=== PATIENT | female | born 1980 | race Caucasian/White ===

== ENCOUNTER 2017-01-01 14:11 | Emergency (ER) | payer SELFPAY ==
[~2017-01-01] VITALS: Ht 152.4 cm; Wt 67.7 kg
[2017-01-01 14:21] VITALS: BP 110/61
== END 2017-01-01 15:26 | disposition home or self-care (01) ==
LOC: ED 15:10
DX: J20.9 Acute bronchitis, unspecified (principal); J45.31 Mild persistent asthma with (acute) exacerbation; F10.20 Alcohol dependence, uncomplicated
CPT/HCPCS: 71020; 99284; J7512

== ENCOUNTER 2017-02-07 14:33 | Emergency (ER) | payer SELFPAY ==
[~2017-02-07] VITALS: Ht 152.4 cm; Wt 68.0 kg
[2017-02-07 14:45] VITALS: BP 118/81
[2017-02-07 15:59] LABS: ASPARTATE AMINO TRANSFERASE 80 U/L (15-37); BLOOD UREA NITROGEN 7 mg/dL (7-18)
== END 2017-02-07 17:01 | disposition home or self-care (01) ==
LOC: ED 15:37
DX: N89.8 Other specified noninflammatory disorders of vagina (principal); F17.210 Nicotine dependence, cigarettes, uncomplicated; F19.10 Other psychoactive substance abuse, uncomplicated; J45.909 Unspecified asthma, uncomplicated
CPT/HCPCS: 36415; 80053; 81001; 84703; 85025; 87086; 93005; 99285

== ENCOUNTER 2017-06-22 17:23 | Emergency (ER) | payer SELFPAY ==
[~2017-06-22] VITALS: Ht 152.4 cm; Wt 57.3 kg
[2017-06-22 17:33] VITALS: BP 120/90
== END 2017-06-22 18:25 ==
LOC: ED 18:19
DX: Z53.21 Procedure and treatment not carried out due to patient leaving prior to being seen by health care provider (principal)

== ENCOUNTER 2017-06-29 12:56 | Emergency (ER) | payer OTHER ==
[~2017-06-29] VITALS: Ht 152.4 cm; Wt 57.0 kg
[2017-06-29] MEDS ORDERED: SODIUM CHLORIDE 0.9% 1,000ML IVBOLUS ONE (13:30)
[2017-06-29] MEDS ORDERED: SODIUM CHLORIDE FLUSH 10ML SYR IVF ONE (13:30)
[2017-06-29] MEDS ORDERED: ONDANSETRON 2MG/ML, 2ML IVPush ONE (13:30)
[2017-06-29] MEDS ORDERED: ONDANSETRON 2MG/ML, 2ML ONE (13:32)
[2017-06-29] MEDS ORDERED: ONDANSETRON ODT 4 MG ONE (14:25)
[2017-06-29] MEDS ORDERED: ONDANSETRON ODT 4 MG PO ONE (14:30)
[2017-06-29 14:51] LABS: HEMATOCRIT 47.4 % (34.6-47.8); HEMOGLOBIN 16.2 g/dL (11.7-16.4); WHITE BLOOD COUNT 5.8 x10^3/uL (3.4-10)
[2017-06-29 14:59] LABS: ASPARTATE AMINO TRANSFERASE 65 U/L (15-37); BLOOD UREA NITROGEN 5 mg/dL (7-18)
[2017-06-29 15:46] VITALS: BP 126/84
== END 2017-06-29 16:05 | disposition home or self-care (01) ==
LOC: ED 16:00
DX: F10.220 Alcohol dependence with intoxication, uncomplicated (principal)
CPT/HCPCS: 36415; 74020; 80053; 80307; 83690; 85025; 93005; 99285; Q0162; G0479

== ENCOUNTER 2017-08-08 12:40 | Emergency (ER) | payer MEDICAID, OTHER ==
[~2017-08-08] VITALS: Ht 152.4 cm; Wt 57.2 kg
[2017-08-08 12:54] VITALS: BP 113/74
== END 2017-08-08 15:33 | disposition home or self-care (01) ==
LOC: ED 15:27
DX: M54.2 Cervicalgia (principal); M54.5 Low back pain; F10.229 Alcohol dependence with intoxication, unspecified; J45.909 Unspecified asthma, uncomplicated; Y04.0XXA Assault by unarmed brawl or fight, initial encounter; Y93.89 Activity, other specified; Y92.89 Other specified places as the place of occurrence of the external cause; Y99.8 Other external cause status
CPT/HCPCS: 72020; 72050; 72110; 99284

== ENCOUNTER 2017-08-22 08:48 | Emergency (ER) | payer MEDICAID ==
[~2017-08-22] VITALS: Ht 152.4 cm; Wt 56.0 kg
[2017-08-22 08:50] VITALS: BP 104/70
[2017-08-22] MEDS ORDERED: ALBUTEROL SULFATE 2.5 MG/3 ML NPPB ONE (10:00)
[2017-08-22] MEDS ORDERED: ALBUTEROL SULFATE 2.5 MG/3 ML ONE (10:16)
== END 2017-08-22 10:53 | disposition home or self-care (01) ==
LOC: ED 09:48
DX: J45.31 Mild persistent asthma with (acute) exacerbation (principal); F17.210 Nicotine dependence, cigarettes, uncomplicated
CPT/HCPCS: 94640; 99283; J7512; J7613

== ENCOUNTER 2017-08-24 06:54 | Emergency (ER) | payer MEDICAID ==
[~2017-08-24] VITALS: Ht 152.4 cm; Wt 56.5 kg
[2017-08-24] MEDS ORDERED: IBUPROFEN 200 MG TABLET ONE (07:59)
[2017-08-24] MEDS ORDERED: IBUPROFEN 200 MG TABLET PO ONE (08:00)
[2017-08-24 09:16] VITALS: BP 100/72
== END 2017-08-24 09:18 | disposition home or self-care (01) ==
LOC: ED 07:10
DX: J20.8 Acute bronchitis due to other specified organisms (principal)
CPT/HCPCS: 71020; 93005; 99284

== ENCOUNTER 2017-09-15 19:08 | Emergency (ER) | payer MEDICAID ==
[~2017-09-15] VITALS: Ht 152.4 cm; Wt 55.9 kg
[2017-09-15 19:10] VITALS: BP 115/78
[2017-09-15] MEDS ORDERED: LIDOCAINE 1%, 10ML ONE (19:34)
[2017-09-15] MEDS ORDERED: LIDOCAINE 1%, 20ML SQ ONE (20:00)
== END 2017-09-15 20:24 | disposition home or self-care (01) ==
LOC: ED 20:18
DX: L03.317 Cellulitis of buttock (principal); L02.31 Cutaneous abscess of buttock
CPT/HCPCS: 10060; 99283

== ENCOUNTER 2017-11-24 13:48 | Emergency (ER) | payer MEDICAID ==
[~2017-11-24] VITALS: Ht 152.4 cm; Wt 56.8 kg
[2017-11-24 14:12] VITALS: BP 100/69
[2017-11-24] MEDS ORDERED: METHOCARBAMOL 750 MG TABLET PO ONE (15:00)
[2017-11-24] MEDS ORDERED: KETOROLAC 30 MG/1 ML IM ONE (15:00)
[2017-11-24] MEDS ORDERED: METHOCARBAMOL 750 MG TABLET ONE (15:21)
[2017-11-24] MEDS ORDERED: KETOROLAC 30 MG/1 ML ONE (15:21)
== END 2017-11-24 16:11 | disposition home or self-care (01) ==
LOC: ED 15:59
DX: M51.36 Other intervertebral disc degeneration, lumbar region (principal); S39.012A Strain of muscle, fascia and tendon of lower back, initial encounter; X58.XXXA Exposure to other specified factors, initial encounter; Y93.89 Activity, other specified; Y92.89 Other specified places as the place of occurrence of the external cause; Y99.9 Unspecified external cause status; F17.210 Nicotine dependence, cigarettes, uncomplicated; F10.20 Alcohol dependence, uncomplicated
CPT/HCPCS: 72110; 73502; 96372; 99284; J1885

== ENCOUNTER 2017-12-06 09:42 | Emergency (ER) | payer MEDICAID ==
[~2017-12-06] VITALS: Ht 152.4 cm; Wt 58.8 kg
[2017-12-06 09:49] VITALS: BP 122/71
[2017-12-06] MEDS ORDERED: ACETAMINOPHEN 325 MG TABLET ONE (10:36)
[2017-12-06] MEDS ORDERED: ACETAMINOPHEN 325 MG TABLET PO ONE (11:00)
[2017-12-06] MEDS ORDERED: BACITRACIN ZINC OINT 500U/GM, 0.9 GM ONE (11:40)
== END 2017-12-06 11:58 | disposition home or self-care (01) ==
LOC: ED 11:01
DX: S60.222A Contusion of left hand, initial encounter (principal); X58.XXXA Exposure to other specified factors, initial encounter; Y93.89 Activity, other specified; Y92.89 Other specified places as the place of occurrence of the external cause; Y99.8 Other external cause status
CPT/HCPCS: 99284